=== PATIENT | male | born 1995 | race Caucasian/White ===

== ENCOUNTER 2021-02-24 05:02 | Emergency (ER) | payer BC, OTHER ==
[~2021-02-24] VITALS: Ht 182.9 cm; Wt 128.0 kg
[2021-02-24 06:04] VITALS: BP 116/79
[2021-02-24 07:23] LABS: BASOPHILS % 0.3 % (0.0-2.0); EOSINOPHILS % 1.5 % (0.0-5.0); HEMATOCRIT. 45.1 % (42.0-52.0); HEMOGLOBIN. 15.4 g/dL (14.0-18.0); MEAN CORPUSCULAR HEMOGLOBIN 30.3 pg (28.0-32.0); MEAN PLATELET VOLUME 8.9 fl (7.4-10.4); MONOCYTES % 6.6 % (2.0-8.0); NEUTROPHILS % 59.6 % (40.0-76.0); PLATELET 302 x1000/uL (130-400); RED BLOOD CELL COUNT 5.07 mill/uL (4.7-6.1); RED CELL DISTRIBUTION WIDTH 13.9 % (11.6-14.6)
[2021-02-24 07:26] LABS: CHLORIDE 110 mEq/L (98-107)
[2021-02-24 07:32] LABS: ETHANOL BLOOD 135 mg/dL
== END 2021-02-24 18:55 | disposition left against medical advice (07) ==
LOC: ER 05:37
DX: Z00.8 Encounter for other general examination (principal); E78.00 Pure hypercholesterolemia, unspecified
CPT/HCPCS: 36415; 80048; 80307; 80320; 80329; 85025; 99283; G0480